=== PATIENT | female | born 1960 | race Caucasian/White ===

== ENCOUNTER 2024-11-12 07:27 | Day surgery (SDC) | payer MEDICARE ==
[~2024-11-12 07:27] MED LIST: Sodium Chloride 0.9% 10 ML Syringe FLUSH PRN; Sodium Chloride 0.9% 2.5 ML Syringe FLUSH PRN
[2024-11-12] MEDS ORDERED: propofoL 500 MG/50 ML 50 ML ONE (08:01)
[2024-11-12] MEDS: Lactated Ringers 1,000 ML IV SCH (08:06)
== END 2024-11-12 10:02 | disposition home or self-care (01) ==
LOC: MW.SDS 07:27
PROVIDERS: ATTEND Surgery
DX: Z12.11 Encounter for screening for malignant neoplasm of colon (principal); D12.3 Benign neoplasm of transverse colon; D12.5 Benign neoplasm of sigmoid colon; K57.30 Diverticulosis of large intestine without perforation or abscess without bleeding; Z86.0100 Personal history of colon polyps, unspecified; Z91.09 Other allergy status, other than to drugs and biological substances
CPT/HCPCS: 45380; 45385; 88305; J2003; J2704; J7120; 00811